=== PATIENT | female | born 1965 | race Caucasian/White ===

== ENCOUNTER → 2017-03-01 | Outpatient (CLI) | payer OTHER ==
--- NOTE | 2017-03-02 12:09 | Diagnostic Imaging Report ---
Bilateral screening mammogram with 2D views with tomosynthesis The current study was also evaluated with a Computer Aided Detection (CAD) system. INDICATION: Screening. No current complaints stated on the questionnaire. COMPARISON: 12/30/2015. FINDINGS: The breasts are composed of scattered fibroglandular densities. In the medial aspect of the right breast there is a 1-cm lobulated circumscribed nodule seen which appears more prominent compared to prior exams. It is in the far medial and posterior location. The left breast demonstrates no significant change. Benign-appearing calcifications are seen. IMPRESSION: A 1-cm lobulated nodule in the medial aspect of the right breast is seen, perhaps noted faintly as a smaller density on the prior exams. The overall appearance is suggestive of benign etiology. Better evaluation with ultrasound is recommended. ACR BI-RADS Category 0: Incomplete. (Needs additional imaging evaluation). Result letter will be mailed to the patient. Note: At least 10% of breast cancer is not imaged by mammography. Dictated by: Dictated on workstation # [id number]
== END ==
LOC: RAD 09:17
PROVIDERS: ATTEND Obstetrics & Gynecology
DX: Z12.31 Encounter for screening mammogram for malignant neoplasm of breast (principal)
CPT/HCPCS: 77067

== ENCOUNTER → 2017-03-08 | Outpatient (CLI) | payer OTHER ==
--- NOTE | 2017-03-08 10:04 | Diagnostic Imaging Report ---
EXAMINATION: Right breast ultrasound. INDICATION: Medial right breast nodule appears slightly larger compared to prior mammograms with smooth margins. FINDINGS: The medial aspect of the breast is scanned with no underlying abnormality seen. IMPRESSION: Negative study. The mammographic finding has no correlating abnormality by ultrasound. Its smooth margins is in favor of a benign process, however given the suggested enlargement from prior exams, further evaluation with breast MRI is recommended. BI-RADS 0. ACR BI-RADS Category 0: Incomplete. (Needs additional imaging evaluation). Dictated by: Dictated on workstation # [id number]
== END ==
LOC: RAD 09:02
PROVIDERS: ATTEND Obstetrics & Gynecology
DX: N63 Unspecified lump in breast (principal)

== ENCOUNTER → 2017-08-10 | Outpatient (CLI) | payer OTHER ==
--- NOTE | 2017-08-10 08:21 | Diagnostic Imaging Report ---
EXAMINATION: Right breast diagnostic mammogram with tomography evaluation. CAD is utilized. The current study was also evaluated with a Computer Aided Detection (CAD) system. INDICATION: Followup nodule in the mid aspect of the right breast. FINDINGS: Again seen is a lobulated circumscribed nodule in the medial aspect of the right breast. It is not significantly changed from 03/01/17 exam and is favored to be benign. Other fibroglandular tissue appear unchanged. IMPRESSION: Stable lobulated 8mm nodule in the medial aspect of the right breast. Ultrasound evaluation pending. BI-RADS 0. ACR BI-RADS Category 0: Incomplete. (Needs additional imaging evaluation). Result letter will be mailed to the patient. Note: At least 10% of breast cancer is not imaged by mammography. Dictated by: Dictated on workstation # [id number]
--- NOTE | 2017-08-10 19:51 | Diagnostic Imaging Report ---
EXAMINATION: Right breast ultrasound. INDICATION: Lobulated nodule in the mid aspect of the right breast. FINDINGS: The nodule seen on mammography in the medial aspect is not identified on ultrasound with no underlying lesion seen. IMPRESSION: Negative study. The nodule seen by mammography is likely benign. Another followup in February 2018 when the patient is due for her bilateral mammogram is recommended to ensure stability. ACR BI-RADS Category 3: Probably benign findings. Result letter will be mailed to the patient. Note: At least 10% of breast cancer is not imaged by mammography. Dictated by: Dictated on workstation # [id number]
== END ==
LOC: RAD 07:50
PROVIDERS: ATTEND Obstetrics & Gynecology
DX: N63.10 Unspecified lump in the right breast, unspecified quadrant (principal)

== ENCOUNTER → 2018-02-01 | Outpatient (CLI) | payer OTHER ==
--- NOTE | 2018-02-01 11:07 | Diagnostic Imaging Report ---
INDICATION: Cough. COMPARISON: None. FINDINGS: Two views of the chest are obtained. Heart size is normal. The pulmonary vessels appear unremarkable. There is no pneumothorax, mediastinal widening or pleural fluid. The lungs are clear. Osseous structures appear unremarkable. IMPRESSION: Negative chest. Dictated by: Dictated on workstation # [id number]
== END ==
LOC: RAD 10:29
PROVIDERS: ATTEND Family Medicine
DX: R05 Cough (principal)
CPT/HCPCS: 71046

== ENCOUNTER → 2018-03-15 | Outpatient (CLI) | payer OTHER ==
--- NOTE | 2018-03-15 19:12 | Diagnostic Imaging Report ---
EXAMINATION: Digital mammogram bilateral screening with 3D tomosynthesis. INDICATION: Screening. COMPARISON: This study was compared to the prior exams of 08/10/2017, 03/01/2017, and 12/30/2015. At this time, there are no current complaints. The current study was also evaluated with a Computer Aided Detection (CAD) system. FINDINGS: The fibroglandular tissue in both breasts is heterogeneously dense. This does limit the sensitivity of this exam. The small benign-appearing nodular density in the medial aspect of the right breast seen on the previous study is again evident and no different. There is no primary or secondary sign of malignancy noted. IMPRESSION: There is no evidence of malignancy. ACR BI-RADS Category 1: Negative. Result letter will be mailed to the patient. Note: At least 10% of breast cancer is not imaged by mammography. Dictated by: Dictated on workstation # [id number]
== END ==
LOC: RAD 07:44
PROVIDERS: ATTEND Obstetrics & Gynecology
DX: Z12.31 Encounter for screening mammogram for malignant neoplasm of breast (principal)
CPT/HCPCS: 77067

== ENCOUNTER 2019-03-15 07:29 | Day surgery (SDC) | payer OTHER ==
--- NOTE | 2019-03-07 19:34 | HISTORY AND PHYSICAL ---
DATE OF SERVICE: COLONOSCOPY HISTORY AND PHYSICAL REFERRING PHYSICIAN: King Stevenson MD HISTORY OF PRESENT ILLNESS: The patient is a 53-year-old white female referred for her first screening colonoscopy. She is deemed to be of average risk as she is not aware of any family history for colon cancer, colon polyps, or inflammatory bowel disease. She denies any bright red blood per rectum, melena, abdominal pain or bowel habit change. PAST MEDICAL HISTORY: Significant for overweight status. She has been on phentermine, reports she has lost 20 pounds and her goal is to lose 10 more pounds, which would put her in the middle of a normal weight range for her height. MEDICATIONS ON ADMISSION: Phentermine 37.5 mg daily, medroxyprogesterone 2.5 mg daily, estradiol 1 mg daily, aspirin 81 mg daily, multiple vitamin and daily fiber capsule. ALLERGIES: SHE REPORTS ALLERGY TO PENICILLIN, WHICH CAUSED RASH. PAST SURGICAL HISTORY: Significant for wisdom tooth extraction. SOCIAL HISTORY: She is employed and reports no past smoking and only occasional ethanol intake. PHYSICAL EXAMINATION: GENERAL: Reveals a well-appearing white female, in no acute distress. HEENT: Unremarkable. She has a Mallampati class 2 oropharyngeal configuration. CHEST: Clear to auscultation. CARDIOVASCULAR: Reveals a regular rate and rhythm without murmur, S3 or S4. ABDOMEN: Soft, supple without mass, organomegaly or tenderness. No bruits are noted. EXTREMITIES: Reveal no cyanosis, clubbing or edema. ASSESSMENT/PLAN: The patient was set up for screening colonoscopy, date of the procedure is 03/15/2019. Prep instructions with Greer-prep kit were given and questions were answered. Job ID: [id number] DocumentID: [id number] Dictated Date: 02/28/2019 20:48:30 Airfield Engineer Officer Date: 02/28/2019 21:06:28 Dictated By: LEIDY PRO MD
[~2019-03-15] VITALS: Ht 160 cm; Wt 65.8 kg
[~2019-03-15 07:29] MED LIST: ASPI-586 PO; CALC625T14 PO; ESTR1TAB24 PO; MEDR2.5T6 PO; MV-M1TAB57 PO; PHEN37.53 PO
[2019-03-15 07:45] VITALS: BP 104/47
[2019-03-15] MEDS ORDERED: MIDAZOLAM 2 MG/2 ML (VERSED) VIAL IVP ONE (08:00)
[2019-03-15] MEDS ORDERED: D5 LR IV SOLUTION 1,000 ML IV PRN (08:00)
[2019-03-15] MEDS ORDERED: fentaNYL INJECTION 100 MCG/2 ML AMP IVP ONE (08:00)
[2019-03-15] MEDS ORDERED: LIDOCAINE JELLY 2% 6 ML SYRINGE MM PRN (08:00)
--- NOTE | 2019-03-15 08:01 | Pre-Op Note & Conscious Sedat ---
Pre-Operative Progress Note H&P Reviewed The H&P was reviewed, patient examined and no changes noted. Date H&P Reviewed: Mar 15, 2019 Time H&P Reviewed: 08:01 Conscious Sedation Pre-Proced ASA Score 2 For ASA 3 and 4: Consider anesthesia and medical clearance. Also, for patients with a history of failed moderate sedation consider anesthesia. Airway Lungs Heart ASA score ASA 1: a normal healthy patient ASA 2: a patient with a mild systemic disease (mid diabetes, controlled hypertension, obesity ASA 3: a patient with a severe systemic disease that limits activity (angina, COPD, prior Myocardial infarction) ASA 4: a patient with an incapacitating disease that is a constant threat to life (CHF, renal failure) ASA 5: a moribund patient not expected to survive 24 hrs. (ruptured aneurysm) ASA 6: a declared brain- patient whose organs are being harvested. For emergent operations, add the letter E after the classification Mallampati Classification Grade 2 Sedation Plan Analgesia, Amnesia, Plan communicated to team members, Discussed options with patient/fam, Discussed risks with patient/fam The patient is an appropriate candidate to undergo the planned procedure, sedation, and anesthesia. The patient immediately re-assessed prior to indication. LEIDY PRO MD Mar 15, 2019 08:01
[2019-03-15] MEDS ORDERED: D5 LR IV SOLUTION 1,000 ML IV ONE (08:04)
[2019-03-15] MEDS ORDERED: MIDAZOLAM 2 MG/2 ML (VERSED) VIAL ONE ×3 (08:34)
[2019-03-15] MEDS ORDERED: fentaNYL INJECTION 100 MCG/2 ML AMP ONE (08:34)
[2019-03-15 09:25] VITALS: BP 92/55
[2019-03-15 10:00] VITALS: BP 107/55
[2019-03-15 10:10] VITALS: BP 107/55
--- NOTE | 2019-03-15 19:42 | OPERATIVE REPORT ---
DATE OF SERVICE: 03/15/2019 COLONOSCOPY SUMMARY REFERRING PHYSICIAN: Sheree Desai DO INDICATION FOR THE PROCEDURE: Screening colonoscopy. DESCRIPTION OF PROCEDURE: The patient was placed in the left lateral decubitus position. Prior to undergoing colonoscopy, digital rectal evaluation was performed. Anal sphincter tone was normal and the perianal reflexes intact. The colonoscope was then inserted into the rectum and under direct visualization, advanced to cecum. Cecum was identified by the identification of ileocecal valve, cecal strap and appendiceal orifice. Photographic documentation was obtained. Careful inspection was made as the colonoscope was withdrawn. The patient tolerated the procedure well. FINDINGS: There was no evidence for internal or external hemorrhoids. The rectum, sigmoid colon, descending colon, transverse colon, ascending colon and cecum were unremarkable. No evidence for diverticular disease or neoplasia was identified. ASSESSMENT: Normal colonoscopy to the cecum. We would advocate consideration for repeat screening colonoscopy in 10 years. I thank you for the referral of this pleasant lady. Job ID: [id number] DocumentID: [id number] Dictated Date: 03/15/2019 12:15:13 Makeup Sales Consultant Date: 03/15/2019 19:41:02 Dictated By: LEIDY PRO MD
== END 2019-03-15 10:15 | disposition home or self-care (01) ==
LOC: ENDO 07:29
PROVIDERS: ATTEND Internal Medicine
DX: Z12.11 Encounter for screening for malignant neoplasm of colon (principal); Z79.52 Long term (current) use of systemic steroids; Z79.82 Long term (current) use of aspirin; Z79.899 Other long term (current) drug therapy; Z88.0 Allergy status to penicillin
CPT/HCPCS: 84703

== ENCOUNTER → 2019-03-18 | Outpatient (CLI) | payer OTHER ==
--- NOTE | 2019-03-18 09:36 | Diagnostic Imaging Report ---
Indication: Routine screening. Comparison is made to prior mammogram from 03/15/2018 and 03/01/2017. 2-D and 3-D bilateral screening mammography was performed with CAD. Scattered fibroglandular densities are identified bilaterally. A lobulated nodule in the inner aspect of the right breast is again noted and may be slightly larger on today's study. No new mass is seen. No malignant-appearing microcalcifications are identified. Axillae are unremarkable. Impression: BI-RADS 0 Slight increase in size of the lobulated circumscribed nodular density in the inner aspect of the right breast when compared with studies dating back to 2015. Further evaluation with ultrasound is recommended. No other significant abnormality is seen. ACR BI-RADS Category 0: Incomplete. (Needs additional imaging evaluation). Result letter will be mailed to the patient. Note: At least 10% of breast cancer is not imaged by mammography. Dictated by: Dictated on workstation # [id number]
== END ==
LOC: RAD 08:46
PROVIDERS: ATTEND Family Medicine
DX: Z12.31 Encounter for screening mammogram for malignant neoplasm of breast (principal)
CPT/HCPCS: 77067

== ENCOUNTER → 2019-05-14 | Outpatient (CLI) | payer OTHER ==
[~2019-05-14] MED LIST changes: +GADOBUTROL 7.5 MMOL/7.5 ML (GADAVIST) VIAL IV ONE
[2019-05-14 14:27] LABS: BUN/CREATININE RATIO 23; GFR ESTIMATED > 60
--- NOTE | 2019-05-14 17:01 | Diagnostic Imaging Report ---
TECHNIQUE: Utilizing an MRI magnet, the patient was placed in a prone position with an 8-channel dual breast coil utilized. Axial STIR precontrasted image and axial T1 fat-sat postcontrast high-resolution images were obtained. Sagittal T2-weighted images precontrast bilaterally were performed as well. Sagittal vibrant temporal images were obtained pre and post contrast with bolus technique utilizing gadolinium. Images are post contrast immediately and subsequently for 7 minutes. Pre and post contrasted images are then evaluated with [employer] for evaluation of possible angiogenesis. INDICATION: Right breast nodule/mass, abnormal imaging. COMPARISON: 03/25/2019, 03/18/2019, 03/15/2018, and 08/10/2017. FINDINGS: The bilateral breasts demonstrate mild background glandular tissue. The bilateral breasts demonstrate mild background enhancement. No significant axillary or internal mammary adenopathy. A lobulated circumscribed 0.9 x 0.6 cm T2 hyperintense mass is noted within the posterior depth of the right breast near 3 o'clock. This corresponds to the mammographic abnormality. This lesion is intimately associated with the skin surface. No enhancement of this mass lesion. No suspicious mass or non-mass enhancement within either breast. The visualized portions of the upper abdomen and chest wall are grossly unremarkable. IMPRESSION: No evidence of malignancy. The previously questioned lesion within the medial right breast is shown to correspond to a nonenhancing T2 hyperintense lesion intimately associated with the skin, likely related to a sebaceous cyst. BI-RADS CATEGORY 2: Benign findings. FOLLOWUP: The patient can return to annual screening mammography with bilateral screening mammograms recommended in 1 year. Dictated by: Dictated on workstation # [id number]
== END ==
LOC: RAD 13:34
PROVIDERS: ATTEND Family Medicine
DX: N63.10 Unspecified lump in the right breast, unspecified quadrant (principal); R92.8 Other abnormal and inconclusive findings on diagnostic imaging of breast
CPT/HCPCS: 36415; 77049; 82565; 84520

== ENCOUNTER → 2020-03-30 | Outpatient (CLI) | payer OTHER ==
[~2020-03-30] MED LIST changes: -GADOBUTROL 7.5 MMOL/7.5 ML (GADAVIST) VIAL IV ONE
--- NOTE | 2020-03-30 11:46 | Diagnostic Imaging Report ---
INDICATION: Routine screening. COMPARISON: 03/18/2019 and 03/15/2018. TECHNIQUE: 2D and 3D bilateral screening mammography was performed with CAD. FINDINGS: Both breasts remain heterogeneously dense, limiting the sensitivity of mammography. A lobulated lesion in the medial portion of the right breast is again noted and may be slightly larger on today's study. This was shown on a prior MRI to likely represent a sebaceous cyst. No spiculated mass or malignant appearing microcalcifications are seen. The axillae are unremarkable. IMPRESSION: 1. No mammographic features suspicious for malignancy are identified. 2. The lobulated lesion in the medial right breast appears slightly larger and was shown by MRI to represent a sebaceous cyst. ACR BI-RADS Category 2: Benign findings. Result letter will be mailed to the patient. Note: At least 10% of breast cancer is not imaged by mammography. Dictated by: Dictated on workstation # [id number]
== END ==
LOC: RAD 08:40
PROVIDERS: ATTEND Obstetrics & Gynecology
DX: Z12.31 Encounter for screening mammogram for malignant neoplasm of breast (principal); N64.9 Disorder of breast, unspecified
CPT/HCPCS: 77063; 77067

== ENCOUNTER → 2020-09-23 | Outpatient (CLI) | payer OTHER ==
--- NOTE | 2020-09-23 16:12 | Diagnostic Imaging Report ---
INDICATION: Right breast lump. COMPARISON: 03/30/2020 and 03/18/2019. TECHNIQUE: 2D and 3D unilateral right diagnostic mammography was performed with CAD. FINDINGS: The lobulated circumscribed density in the far medial and posterior right breast is again noted, similar to perhaps slightly larger when compared to the prior exam. The patient did undergo an MRI of the breast on 05/14/2019 which did visualize this lesion and stated that this was cystic in nature, most likely a sebaceous cyst. The remainder of the right breast is unremarkable. No suspicious microcalcifications are seen. The right axilla is unremarkable. IMPRESSION: The lobulated circumscribed density in the far medial and posterior right breast was previously seen to represent a sebaceous cyst. Even so, sonographic interrogation of this area is recommended and will be performed today. ACR BI-RADS Category 0: Incomplete. (Needs additional imaging evaluation). Result letter will be mailed to the patient. Note: At least 10% of breast cancer is not imaged by mammography. Dictated by: Dictated on workstation # [id number]
--- NOTE | 2020-09-24 08:05 | Diagnostic Imaging Report ---
INDICATION: Right breast lump. Correlation is made with diagnostic mammogram from earlier the same day as well as prior screening mammograms as well as a breast MRI from 05/14/2019. Sonographic examination of medial right breast demonstrates a circumscribed hypoechoic lesion just below the skin surface 2 o'clock location 10 cm from the nipple measuring 1.5 x 0.7 x 1.1 cm. This does show some internal echoes but no internal vascularity. Prior MRI demonstrated this lesion and so this appeared to be cystic and likely a sebaceous cyst. This would correlate with a complex sebaceous cyst. No posterior acoustic shadowing is seen. This does correspond to lesion noted mammographically as well as the patient's palpable abnormality. IMPRESSION: BI-RADS Category 2 Benign lesion at the 2 o'clock location of the right breast, 10 cm from the nipple, most suggestive of a sebaceous cyst. Patient may return to routine annual screening mammography. ACR BI-RADS Category 2: Benign findings. Result letter will be mailed to the patient. Note: At least 10% of breast cancer is not imaged by mammography. Dictated by: Dictated on workstation # [id number]
== END ==
LOC: RAD 13:45
PROVIDERS: ATTEND Obstetrics & Gynecology
DX: N63.11 Unspecified lump in the right breast, upper outer quadrant (principal)
CPT/HCPCS: 76642; 77065; G0279

== ENCOUNTER → 2021-04-01 | Outpatient (CLI) | payer OTHER ==
[~2021-04-01] MED LIST changes: -PHEN37.53 PO; +PHEN37.58 PO
--- NOTE | 2021-04-02 17:00 | Diagnostic Imaging Report ---
INDICATION: Routine screening. COMPARISON is made with prior mammograms from 03/30/2020 and 03/18/2019. 2-D and 3-D bilateral screening mammography was performed with CAD. Both breasts are heterogeneously dense, limiting the sensitivity of mammography. Lobulated circumscribed mass in the medial right breast is again noted and has previously been shown to represent a sebaceous cyst. No new mass or malignant-appearing microcalcifications are seen. Axillae are unremarkable. IMPRESSION: BI-RADS Category 2. No mammographic features suspicious for malignancy are identified. ACR BI-RADS Category 2: Benign findings. Result letter will be mailed to the patient. Note: At least 10% of breast cancer is not imaged by mammography. Dictated by: Dictated on workstation # [id number]
== END ==
LOC: RAD 15:30
PROVIDERS: ATTEND Obstetrics & Gynecology
DX: Z12.31 Encounter for screening mammogram for malignant neoplasm of breast (principal)
CPT/HCPCS: 77063; 77067

== ENCOUNTER → 2021-10-20 | Outpatient (CLI) | payer OTHER ==
--- NOTE | 2021-10-20 14:44 | Diagnostic Imaging Report ---
INDICATION: Enlarging lump medial right breast. Correlation is made with prior mammogram from 04/01/2021 as well as a 03/30/2020. Unilateral right 2-D and 3-D diagnostic mammography was performed. A BB marker was placed at the area palpable abnormality medial right breast. The area of palpable abnormality corresponds to the patient's known circumscribed mass in the medial right breast. This has been previously shown to represent a sebaceous cyst. This is similar in size to prior exam. No new masses detected. No malignant-appearing microcalcifications are seen. Right axilla is unremarkable. IMPRESSION: Overall stable right mammogram in the medial right breast mass when compared with exam from 03/30/2020. This has been shown to represent a sebaceous cyst on prior imaging. Even so, directed sonographic interrogation of this area is recommended and will be performed today. BI-RADS 0 ACR BI-RADS Category 0: Incomplete. (Needs additional imaging evaluation). Result letter will be mailed to the patient. Note: At least 10% of breast cancer is not imaged by mammography. Dictated by: Dictated on workstation # [id number]
--- NOTE | 2021-10-20 17:07 | Diagnostic Imaging Report ---
INDICATION: Right breast lump. COMPARISON: Correlation is made with diagnostic mammogram from earlier the same day as well as prior right breast ultrasound from 09/23/2020. EXAMINATION: Sonographic interrogation of the area of palpable abnormality in the right breast was performed. This corresponds to the 2:00 location, approximately 8 cm from the nipple. FINDINGS: There is a well-defined hypoechoic mass at this location just below the skin surface measuring 16 mm x 6 mm x 14 mm. This compares with 15 mm x 7 mm x 11 mm on prior. This is without internal vascularity. No posterior acoustic shadowing is seen. This again is most consistent with a previously described sebaceous cyst. No other abnormalities are seen. IMPRESSION: Slight increase in size of a known sebaceous cyst at 2:00 location in right breast when compared with prior ultrasound from 09/23/2020. ACR BI-RADS Category 2: Benign findings. Result letter will be mailed to the patient. Note: At least 10% of breast cancer is not imaged by mammography. Dictated by: Dictated on workstation # [id number]
== END ==
LOC: RAD 14:15
PROVIDERS: ATTEND Obstetrics & Gynecology
DX: N60.81 Other benign mammary dysplasias of right breast (principal)
CPT/HCPCS: 76642; 77065; G0279

== ENCOUNTER 2021-12-01 13:02 | Emergency (ER) | payer OTHER ==
[~2021-12-01] VITALS: Ht 161 cm; Wt 68.0 kg
--- NOTE | 2021-12-01 13:31 | ED Head Injury ---
General Chief Complaint: Head/Cervical Problems Stated Complaint: SENSITIVE TO LIGHT - FACIAL NUMBNESS Source: patient Exam Limitations: no limitations (PHAN RYAN APRN) History of Present Illness Date Seen by Provider: Dec 01, 2021 Time Seen by Provider: 13:15 Initial Comments This is a well-appearing 69-year-old female who presented to the ER via POV with complaints of increased infectivity to direct sunlight outside and right-sided facial numbness that lasted approximately 30 minutes earlier today. States that she hit her head on bleachers two days ago and was seen at urgent care and had wound closure with one staple. At the time of injury she denies any loss of consciousness, states she did fall backwards on her buttocks but did not hit her head or neck. She denies this being the worst headache of her life, denies headache since incident, no nausea, vomiting. She does report increased fatigue and feeling slightly off balance. (PHAN RYAN APRN) Allergies and Home Medications Allergies Coded Allergies: Penicillins (Verified Allergy, Unknown, Rash, 03/12/19) Patient Home Medication List Home Medication List Reviewed: Yes (PHAN RYAN APRN) Aspirin (Aspir 81) 81 Mg Tablet.dr, 81 MG PO DAILY, (Reported) Entered as Reported by: DEENA SCOTT on 03/12/19 143 Calcium Polycarbophil (Fiber) 625 Mg Tablet, 625 MG PO DAILY, (Reported) Entered as Reported by: DEENA SCOTT on 03/12/19 1433 Estradiol (Estradiol Tablet) 1 Mg Tablet, 1 MG PO DAILY, (Reported) Entered as Reported by: DEENA SCOTT on 03/12/19 143 Medroxyprogesterone Acetate (Medroxyprogesterone Acetate) 2.5 Mg Tablet, 2.5 MG PO DAILY, (Reported) Entered as Reported by: DEENA SCOTT on 03/12/19 1433 Mv-Mn/Folic Acid/Calcium/Vit K (Women's 50 Plus Multivit Tab) 1 Each Tablet, 1 EACH PO DAILY, (Reported) Entered as Reported by: DEENA SCOTT on 03/12/19 1433 Phentermine HCl (Phentermine HCl) 37.5 Mg Tablet, 37.5 MG PO DAILY, (Reported) Entered as Reported by: DEENA SCOTT on 03/12/19 1433 Review of Systems Review of Systems Constitutional: see HPI Eyes: See HPI; Denies Blurred Vision, Denies Vision Changes Ears, Nose, Mouth, Throat: no symptoms reported Respiratory: no symptoms reported Cardiovascular: no symptoms reported Gastrointestinal: no symptoms reported Genitourinary: no symptoms reported Musculoskeletal: no symptoms reported Skin: no symptoms reported Psychiatric/Neurological: See HPI Endocrine: No Symptoms Reported Hematologic/Lymphatic: No Symptoms Reported (PHAN RYAN APRN) Past Uyhagbd-Rmxwga-Kwlnce Hx Seasonal Allergies Seasonal Allergies: No (PHAN RYAN APRN) Past Medical History Surgeries: Yes (wisdom teeth) Respiratory: No Cardiac: No Neurological: No Genitourinary: No Gastrointestinal: No Musculoskeletal: No Endocrine: No HEENT: No Cancer: No Psychosocial: No Integumentary: No Blood Disorders: No (PHAN RYAN APRN) Physical Exam Vital Signs Vital Signs - First Documented 12/01/21 13:08 Temp 37.3 Pulse 75 Resp 18 B/P (MAP) 116/57 (76) Pulse Ox 100 (THOMPSON COVARRUBIAS MD) Vital Signs Capillary Refill : (PHAN RYAN APRN) Height, Weight, BMI Height: 5'3.00" Weight: 145lbs. 0.0oz. 65.638234lt; 25.7 BMI Method: General Appearance: WD/WN, no apparent distress HEENT: PERRL/EOMI, normal ENT inspection, TMs normal, pharynx normal Neck: full range of motion, supple, normal inspection Cardiovascular: regular rate, rhythm, no edema Respiratory: lungs clear, normal breath sounds, no respiratory distress, no accessory muscle use Gastrointestinal: normal bowel sounds, non tender, soft Back: normal inspection, no vertebral tenderness Extremities: normal range of motion, normal inspection Psychiatric: alert, oriented x 3 Crainal Nerves: normal hearing, normal speech, PERRL; No abnormal eye position, No abnormal gag reflex, No facial asymmetry, No facial droop, No facial paresthesias, No facial weakness Coordination/Gait: normal finger to nose, normal gait Motor/Sensory: no motor deficit, no sensory deficit, no pronator drift, other (Gait is even.) Skin: normal color, warm/dry (PHAN RYAN APRN) Maile Coma Score Best Eye Response: (4) Open Spontaneously Best Verbal Response: (5) Oriented Best Motor Response: (6) Obeys Commands Maile Total: 15 (PHAN RYAN APRN) Progress/Results/Core Measures Progress Progress Note : Progress Note This is a well-appearing 56-year-old female on exam she has no focal or gross neurological deficits. Her symptoms earlier today has since resolved. However will go ahead and obtain CT head without contrast to rule out any bleed. CT head without contrast negative for acute pathology. Discussed case with Dr. WILEY and she agrees with having close follow-up next week just to ensure her symptoms have resolved. Discharge plan of care reviewed with patient and she is agreeable with plan. (PHAN RYAN APRN) Diagnostic Imaging Diagonstic Imaging: CT Plain Films/CT/US/NM/MRI: head Comments [facility]. [place], [place] NAME: ANALI PLASCENCIA [facility] REC#: [id number] PT STATUS: DEP ER : [id number] PHYSICIAN: PHAN RYAN APRN ADMIT DATE: 12/01/21/ER Signed Date of Exam:12/01/21 CT HEAD WO INDICATION: Status post fall with right-sided numbness and dizziness. TECHNIQUE: Multiple contiguous axial images were obtained through the brain without the use of intravenous contrast. Auto Exposure Controls were utilized during the CT exam to meet ALARA standards for radiation dose reduction. COMPARISON: There is no prior study for comparison. FINDINGS: There are no extra-axial fluid collections. No intracranial hemorrhage. No intracranial mass or mass effect. No midline shift. The ventricles are normal in size and position. There were no acute parenchymal abnormalities in the brain. Calvarial windows are unremarkable. IMPRESSION: Negative noncontrast brain CT. Dictated by: Dictated on workstation # [id number] Dict: 12/01/21 1355 Trans: 12/01/21 [id number] Interpreted by: RICARDO CARTAGENA MD Electronically signed by: RICARDO CARTAGENA MD 12/01/21 1514 (PHAN RYAN APRN) Departure Impression Primary Impression: Numbness and tingling of right side of face Disposition: 01 HOME, SELF-CARE Condition: Improved Departure-Patient Inst. Decision time for Depature: 14:18 (PHAN RYAN MEDICAL TECH) Referrals: CEDRIC WILEY DO (PCP/Family) Primary Care Physician Patient Instructions: Head Injury Observation (DC) Add. Discharge Instructions: Plan: 1. May take Tylenol as needed for pain per package. Avoid NSAIDS at this time. 2. I discussed your case with Dr. WILEY and she would like you to call her office to schedule an appointment for early next week for follow-up. 3. Monitor for any of the following red flags and return immediately to the emergency department if you develop symptoms: -Changes in pupil size compared right to left (black part of eye). -Difficulty rousing from sleep -Worsening headache or worst headache of your life -Nausea or vomiting -Blurred vision or loss of vision -Difficulty walking/increased balance issues -Slurred speech, facial numbness or paralysis -Any other new, concerning, or worsening symptoms. All discharge instructions reviewed with patient and/or family. Voiced understanding. ATTENDING PHYSICIAN NOTE: I was physically present as attending physician in the emergency department during the care of this patient, but I was not directly involved in the decision making or delivery of care for this patient. (THOMPSON COVARRUBIAS MD) Copy Copies To 1: CEDRIC WILEY STORMY D APRN Dec 01, 2021 13:31 THOMPSON COVARRUBIAS MD Dec 04, 2021 06:46
--- NOTE | 2021-12-01 14:02 | Diagnostic Imaging Report ---
INDICATION: Status post fall with right-sided numbness and dizziness. TECHNIQUE: Multiple contiguous axial images were obtained through the brain without the use of intravenous contrast. Auto Exposure Controls were utilized during the CT exam to meet ALARA standards for radiation dose reduction. COMPARISON: There is no prior study for comparison. FINDINGS: There are no extra-axial fluid collections. No intracranial hemorrhage. No intracranial mass or mass effect. No midline shift. The ventricles are normal in size and position. There were no acute parenchymal abnormalities in the brain. Calvarial windows are unremarkable. IMPRESSION: Negative noncontrast brain CT. Dictated by: Dictated on workstation # [id number]
[2021-12-01 14:40] VITALS: BP 108/54
== END 2021-12-01 14:42 | disposition home or self-care (01) ==
LOC: EDUNIT# 13:02 → ER 13:04
DX: R20.0 Anesthesia of skin (principal); R20.2 Paresthesia of skin
CPT/HCPCS: 70450

== ENCOUNTER → 2022-06-07 | Outpatient (CLI) | payer OTHER ==
--- NOTE | 2022-06-07 18:32 | Diagnostic Imaging Report ---
Indication: Routine screening. Comparison is made with prior mammograms from 04/01/2021 and 03/30/2020. 2-D and 3-D bilateral screening mammography was performed with CAD. Scattered fibroglandular densities are identified bilaterally. Lobulated circumscribed mass in the medial right breast appears stable. No new mass or malignant-appearing microcalcifications are seen. Axillae are unremarkable. IMPRESSION: BI-RADS Category 2 No mammographic features suspicious for malignancy are identified. ACR BI-RADS Category 2: Benign findings. Result letter will be mailed to the patient. Note: At least 10% of breast cancer is not imaged by mammography. Dictated by: Dictated on workstation # [id number]
== END ==
LOC: RAD 15:45
PROVIDERS: ATTEND Obstetrics & Gynecology
DX: Z12.31 Encounter for screening mammogram for malignant neoplasm of breast (principal)
CPT/HCPCS: 77063; 77067

== ENCOUNTER 2023-03-16 07:59 | Outpatient (RCR) | payer OTHER | END 2023-03-20 | disposition home or self-care (01) | PROVIDERS: ATTEND Family Medicine | DX: M54.16 Radiculopathy, lumbar region (principal) ==

== ENCOUNTER 2023-04-19 16:11 | Outpatient (RCR) | payer OTHER | END 2023-04-20 | disposition home or self-care (01) | PROVIDERS: ATTEND Family Medicine | DX: M54.16 Radiculopathy, lumbar region (principal) ==

== ENCOUNTER 2023-06-05 15:56 | Outpatient (RCR) | payer OTHER | END 2023-06-20 | disposition home or self-care (01) | PROVIDERS: ATTEND Family Medicine | DX: M54.16 Radiculopathy, lumbar region (principal) ==

== ENCOUNTER → 2023-06-14 | Outpatient (CLI) | payer OTHER ==
--- NOTE | 2023-06-15 12:30 | Diagnostic Imaging Report ---
Indication: Routine screening. Comparison is made with prior mammogram from 06/07/2022. 2-D and 3-D bilateral screening mammography was performed with CAD. Scattered fibroglandular densities are identified bilaterally. Previously noted lobulated mass in the medial right breast is again noted and appears stable. No new mass is identified. No malignant-appearing microcalcifications are identified. Axillae are unremarkable. IMPRESSION: BI-RADS Category 2 No mammographic features suspicious for malignancy are identified. ACR BI-RADS Category 2: Benign findings. Result letter will be mailed to the patient. Note: At least 10% of breast cancer is not imaged by mammography. Dictated by: Dictated on workstation # [id number]
== END ==
LOC: RAD 15:45
PROVIDERS: ATTEND Obstetrics & Gynecology
DX: Z12.31 Encounter for screening mammogram for malignant neoplasm of breast (principal)
CPT/HCPCS: 77063; 77067

== ENCOUNTER 2023-06-22 16:04 | Outpatient (RCR) | payer OTHER | END 2023-07-20 | disposition home or self-care (01) | PROVIDERS: ATTEND Family Medicine | DX: M54.16 Radiculopathy, lumbar region (principal) ==